=== PATIENT | male | born 1940 | race Caucasian/White ===

== ENCOUNTER 2016-06-17 10:10 | Inpatient (IN) | payer MEDICARE, OTHER ==
--- NOTE | ~2016-06-17 | DS ---
Discharge Summary [facility] [address] [facility] [place]. [address] NAME: RONALD AMIN : 38 STATUS : DIS IN PAT#: [id number] AGE: 76 ADM/REG DATE : 06/17/16 MR#: [id number] REPORT SERV DATE: 06/20/16 DICTATED BY: KEYANNA GAUTAM DATE: 06/19/16 REPORT STATUS : Draft TRANSCRIBED BY: MODL DATE: 06/19/16 ADMISSION DATE: 06/17/2016 DISCHARGE DATE: 06/19/2016 DISCHARGE DIAGNOSES: 1. Acute on chronic diastolic dysfunction, improved. 2. Chronic kidney disease, stable. 3. History of cardiac transplant. 4. History of former smoker. CONSULTANTS: 1. Dr. Allen. 2. Dr. Pandya. HISTORY OF PRESENT ILLNESS: This is a 76-year-old male patient, who has history of cardiac transplant and chronic kidney disease, came to the hospital with dyspnea on exertion for several months. Please see dictated H and P. HOSPITAL COURSE: He was admitted to hospital with diastolic dysfunction. He had evaluation with echocardiogram. Seen by Dr. Zavaleta the first day and Dr. Pandya. Diuretics have been managed by Dr. Pandya mainly. Improved and significant improvement with the treatment. Stabilized, and the patient does not require home oxygen. The patient is able to ambulate without any problem. The change of medications we made for Lasix 80 mg on Saturday, Saturday, Fridays only and continuing Lasix 40 mg the other days. I explained the patient about the medicine change and followup plan. Had a significant improvement and maximized inpatient benefit. The patient will be discharged to home with followup. DISCHARGE MEDICATIONS: Continue home medications, but Lasix was changed to 80 mg on Saturday, Saturday, Saturday. Continue 40 mg the other days. Other home medications are not changed including cyclosporine, diltiazem, prednisone 10 mg every two days, potassium 20 mEq once a day, and potassium carbonate. DISPOSITION: The patient is discharged to home in stable condition. Need to follow up with [facility], and [facility]. TIME SPENT: More than 30 minutes. EKL/MODL Keyanna Gonzalez Discharge Summary [place] [address] [address] NAME: RONALD AMIN : 38 STATUS : DIS IN PAT#: [id number] AGE: 76 ADM/REG DATE : 06/17/16 MR#: [id number] REPORT SERV DATE: 06/20/16 DICTATED BY: KEYANNA GAUTAM DATE: 06/19/16 REPORT STATUS : Draft TRANSCRIBED BY: MODL DATE: 06/19/16 Pako Gautam / [id number] CC: Keyanna Gautam M.D.
--- NOTE | ~2016-06-17 | CN ---
Consultation Report [facility] [address] [place]. [address] NAME: RONALD AMIN : 38 STATUS : ADM IN PAT#: [id number] AGE: 76 ADM/REG DATE : 06/17/16 MR#: [id number] REPORT SERV DATE: 06/18/16 DICTATED BY: JALEN PANDYA DATE: 06/18/16 REPORT STATUS : Draft TRANSCRIBED BY: DAVID DATE: 06/18/16 DATE OF CONSULTATION: REASON FOR CONSULTATION: Chronic kidney disease with admission for dyspnea on exertion. HISTORY OF PRESENT ILLNESS: This is a very pleasant 76-year-old male patient, followed in our office by Dr. Gold Carrillo, and his baseline creatinine is unknown to me at this time, however, the patient states baseline creatinine is somewhere in the 2s by his recollection. He does not recall his most recent available creatinine. In 2010, creatinine baseline appears to be 1.85 to 1.99; in 2012, at 2.07; in 2014, at 1.91; in 2015, at 2.23 to 2.49 with a creatinine today at 2.60 with his admission creatinine on at 2.46. Baseline creatinine is likely somewhere between 2.2 and 2.5. The patient reported to [facility] with a complaint of increasing dyspnea on exertion and nocturnal dyspnea prompting admission for assistance in diuresis and further evaluation and supportive care. He does not report chronic maintenance on home oxygen, although he is maintained currently on 2 L via nasal cannula. His p.o. Lasix regimen has been changed to 50 of torsemide with a daily dosing of metolazone at 4 mg by Cardiology. He is awake, alert, and ambulatory this morning. Denies overt shortness of breath. No chest pain, nausea, or vomiting. PAST MEDICAL HISTORY: Positive for chronic kidney disease, baseline creatinine unknown but appears to be likely 2.2 to 2.5. History is also positive for previous heart transplantation at [facility] in 1995. Remainder of his history is positive for previous coronary artery disease, previous CABG, myocardial infarction, history of aortic aneurysm repair in 2004 with stents, history of hypertension and dyslipidemia. SOCIAL HISTORY: Remote smoker with smoking cessation in 1980. He was an aggressive smoker prior to that with three packs per day. No EtOH, no illicit drugs, no tobacco at this point. He is and has a daughter and a brother who live here locally. FAMILY HISTORY: Noncontributory and not reviewed during this consultation and dictation. REVIEW OF SYSTEMS: Completed. Please see HPI for pertinent details. MEDICATIONS: Current active medications include ASA 325 mg daily, calcium carbonate 600 mg p.o. daily, cyclosporine 50 mg daily and 25 mg at bedtime, diltiazem 240 mg daily, famotidine 20 mg p.o. at bedtime, heparin 5000 units subcu q.8, multivitamin one tab, nitroglycerin 0.5 mg p.o. q.6 hours p.r.n. for chest pain, Promega one caplet p.o. b.i.d., prednisone 10 mg p.o. daily, simvastatin 40 mg daily, torsemide 50 mg daily. He also has antiemetic, antipain, antinausea, and electrolyte protocol unavailable on his active medications. ALLERGIES: HE LISTS ALLERGIES TO PROCAINAMIDE ON HIS ALLERGY LIST. Consultation Report [address] [place]. [address] NAME: RONALD AMIN : 38 STATUS : ADM [facility]#: [id number] AGE: 76 ADM/REG DATE : 06/17/16 MR#: [id number] REPORT SERV DATE: 06/18/16 DICTATED BY: JALEN PANDYA DATE: 06/18/16 REPORT STATUS : Draft TRANSCRIBED BY: DAVID DATE: 06/18/16 PHYSICAL EXAMINATION: VITAL SIGNS: Blood pressure at 103/65, temperature 97.6, heart rate 101 beats per minute, he is 99% on 2 L nasal cannula. GENERAL: He is awake, alert, and oriented x3, and ambulatory in his room. Denies current chest pain. No nausea, vomiting, or diarrhea. HEENT: Normocephalic and atraumatic. Normal ocular movements. No scleral icterus. No conjunctival pallor is appreciated. NECK: Supple without thyromegaly. No JVD or mass. CHEST: Shows positive S1 and S2. No rubs or gallops. LUNGS: Diminished, but essentially clear to auscultation throughout with no rhonchi or wheezes appreciated. GI: Shows positive bowel sounds and a rounded abdomen with no appreciable mass and no tenderness. Positive bowel sounds in all four quadrants. : Deferred. EXTREMITIES: Show positive pulses. No clubbing, cyanosis, or edema. NEUROLOGIC: Appears to be grossly intact. Nonfocal. SKIN: Warm, dry, and intact to visualized surfaces. No rash, lesions, or ecchymosis. PSYCHIATRIC: He appears to be of appropriate mood and affect and he is neurologically intact. LABORATORY DATA: Pertinent laboratories and imaging to this evaluation: Hemoglobin A1c of 5.8. Electrolyte profile: Sodium 143, potassium 4.3, chloride 109, CO2 of 21, BUN 36, creatinine 2.60. Reflected GFR at 23 mL/minute, calcium 8.2, magnesium 2.2, phosphorus 3.3, troponin 0.04. CBC shows a white blood cell count of 6.7, RBC 4.17, hemoglobin 12.6, hematocrit 37.4, platelets 137. Most recent B-natriuretic peptide 1017.3. Portable chest x ray taken on 06/17/2016 shows clear lungs with no evidence of pleural fluid. IMPRESSION AND PLAN: This is a chronic kidney disease stage 3 to stage [address] Gold Carrillo with baseline creatinine appeared to be around 2.2 to 2.6 over the last calendar year. Admitted with volume overload and shortness of breath now with modification of his treatment plan to include torsemide and metolazone dosing respectively as dose is indicated in HPI. The patient's breathing status has improved very much so since admission by his assessment this morning. However, given his chronic renal dysfunction and modification of diuretic burden, will need to titrate 50 of torsemide and dosing of metolazone in an effort to maintain a reasonable renal function as well as cardiac function and ease work of breathing. We will continue fluid restrictions as in place, ask nursing services to assess his need for home O2 and await his echocardiogram. The patient is anxious to exit to home today and has discussed this at length with his primary provider this morning, Dr. Raphael. Await cardiac recommendations. Will watch I's and O's and may need to modify diuretic pattern as above. Contact our office for recent evaluations and trends of laboratories, home O2 evaluation as listed, fluid restrict, sodium restrict, and modify treatment plan based on clinical presentation of the patient, laboratory results, and further consultation with renal attending. Of note, per the patient's discussion, he prefers that any medical decisions made by providers here are also discussed with [facility] or the facility responsible for his cardiac transplant. It is unlikely that he will follow medical Consultation Report [place] [id number] [facility] [place] [address] NAME: RONALD AMIN : 38 STATUS : ADM IN PAT#: [id number] AGE: 76 ADM/REG DATE : 06/17/16 MR#: [id number] REPORT SERV DATE: 06/18/16 DICTATED BY: JALEN PANDYA. DATE: 06/18/16 REPORT STATUS : Draft TRANSCRIBED BY: MODL DATE: 06/18/16 recommendations made here unless he feels that [facility] services are in agreement with current plans. We appreciate consultation on this patient. We are glad to follow him with you. DICTATED BY: Soham Castro NP JR/DAVID Jalen Pandya M.D. / [id number] CC: Heidi Raphael M.D. NO PCP
--- NOTE | ~2016-06-17 | HP ---
History And Physical [facility] [address] [place]. [address] NAME: RONALD AMIN : 38 STATUS : ADM IN [facility]#: [id number] AGE: 76 ADM/REG DATE : 06/17/16 MR#: [id number] REPORT SERV DATE: 06/17/16 DICTATED BY: RAO HARMAN DATE: 06/17/16 REPORT STATUS : Draft TRANSCRIBED BY: MODZhanna DATE: 06/17/16 DATE OF ADMISSION: 06/17/2016 HISTORY OF PRESENT ILLNESS: The patient is a pleasant 76-year-old male, who presented to [facility] accompanied by his daughter with a complaint of dyspnea for last three days. He said he always has dyspnea on exertion. At least for the last six or eight months, he has dyspnea on exertion and chronic lower extremity swelling, but for the last three to four days, it was worsening. He was complaining of cough with mostly clear phlegm. No fever. He did not have any significant chest pain. He said only sometimes on inspiration. He had mild pain in the left lower quadrant, which was sharp in character, was looking like rib achiness, but it has resolved now and does not hurt at all. The patient denies any fever, no rash, no headaches, no abdominal pain, no constipation, no diarrhea. He is febrile, and he was short of breath and unable to sleep. He was unable to lay flat, and he needed some pillows to put under his head. All 14-point review of systems done and negative except what is stated in the history of present illness. PAST MEDICAL HISTORY: Known for history of heart transplantation at an [facility] in in 1995. He sees [facility], Dr. Slick Gutiérrez and also Dr. Caitlyn Chau. Here in [place], he sees Dr. Allen, and he saw him six months ago. He said that his lower extremities has been always swollen. He also has abnormal kidney function. He said they told me it is borderline. According to our findings in the computer, his creatinine on 05/13/2015 was 2.49 and today 2.46, so one year ago was in the same range. He sees Dr. Gold Carrillo for his abnormal kidney function. The patient reported that before heart transplantation, he had coronary artery bypass grafting and he had heart attacks before. The patient denies history of any arrhythmia in the past. He also had history of aortic aneurysm repair in 2004 with some stents history of hypertension and dyslipidemia, includes also his past medical history. No other surgical history. ALLERGIES: CODEINE, SULFA, AND PROCAINAMIDE. SOCIAL HISTORY: Former smoker, quit in 1980. He used to smoke three packs per day. No alcohol. No recreational drug use. He is . He has one daughter who is at the bedside. He also has a brother. FAMILY HISTORY: Mother of old age. Father of a blood clot. REVIEW OF SYSTEMS: 14-point review of systems done and negative except what stated in history of present illness. HOME MEDICATIONS: Calcium carbonate 600 mg daily, Gengraf 50 mg in the morning and 25 in the evening, diltiazem 240 mg a day, omega-3 fatty acids 1200 p.o. b.i.d., potassium chloride 20 mEq p.o. daily, prednisone 10 mg p.o. q.48 hours, Zantac 150 mg p.o. b.i.d., simvastatin 40 mg daily, vitamin C, E, multivitamin PreserVision one capsule p.o. twice a day, furosemide History And Physical [address] [address] NAME: RONALD AMIN : 38 STATUS : ADM IN [facility]#: [id number] AGE: 76 ADM/REG DATE : 06/17/16 MR#: [id number] REPORT SERV DATE: 06/17/16 DICTATED BY: RAO HARMAN DATE: 06/17/16 REPORT STATUS : Draft TRANSCRIBED BY: MODZhanna DATE: 06/17/16 40 mg daily. PHYSICAL EXAMINATION: GENERAL: A well-nourished, well-developed male, not in acute distress. Resting quietly. VITAL SIGNS: Blood pressure 156/86, temperature 97.5, heart rate 101 to 103, respiratory rate 15, oxygen saturation 97% on 2 L nasal cannula. HEENT: Head atraumatic, normocephalic. Conjunctivae clear. Pupils are equal and reactive to light and accommodation. Extraocular muscles are intact. NECK: Supple. Trachea is midline. No supraclavicular or cervical lymphadenopathy. LUNGS: Diminished breath sounds bilaterally. Decreased respiratory effort. CARDIOVASCULAR: Regular rate and rhythm. Mild sinus tachycardia with low-voltage QRS. Ventricular rate 103. Point of maximal impulse not displaced. ABDOMEN: Soft, nontender, nondistended. No organomegaly. EXTREMITIES: No cyanosis, 2+ edema. There are changes of chronic venous stasis ulcers. PSYCHIATRIC: Normal mood and affect. NEUROLOGIC: Awake, alert, and oriented in time, place, and person. Muscle strength is 5/5 bilaterally on upper and lower extremities. LABORATORY RESULTS: Sodium 141, potassium 4, chloride 108, carbon dioxide 24, BUN 31, creatinine 2.46, blood sugar 106. Troponin 0.05. ALT 21, AST 16, total bilirubin 0.5. White count 9.3, hemoglobin 15, hematocrit 43.9, and a platelet count 136. PT 14.6, INR 1.2. BNP 1017. Chest x-ray, sternotomy. No acute cardiopulmonary process. ASSESSMENT AND PLAN: This is a very pleasant 76-year-old male with a history of heart transplantation in 1995; history of chronic kidney disease; history of coronary artery disease in the past; history of abdominal aortic aneurysm, status post stents presented with, 1. Acute congestive heart failure exacerbation with dyspnea and dyspnea at rest and swollen lower extremity. 2. Chronic kidney disease versus acute kidney injury, most likely chronic kidney disease. 3. Mild sinus tachycardia. We will admit the patient to telemetry bed to a cardiac floor. The patient was already given intravenous Lasix in the emergency room, and his shortness of breath immediately improved after he was given Lasix intravenously. Because of his abnormal kidney function, his creatinine is 2.46 today and one year ago on 05/13/2015 was 2.49, so most likely this is his baseline, but we will consult insurance sales manager for diuretic management. Borderline troponin likely this is demand ischemia since the patient does not have any chest pain right now, although earlier he had some sharp chest discomfort on the left side of the chest, which was atypical; currently, he does not have it, so we will check two more troponins serially to see if it will be increasing, as well as we will put him on nitroglycerin as needed for chest pain. I will also consult director oracle database communication lecturer to see this patient today. We will give him also aspirin. History And Physical [place] [address] [address] [place] [address] NAME: RONALD AMIN : 38 STATUS : ADM IN PAT#: [id number] AGE: 76 ADM/REG DATE : 06/17/16 MR#: [id number] REPORT SERV DATE: 06/17/16 DICTATED BY: RAO HARMAN DATE: 06/17/16 REPORT STATUS : Draft TRANSCRIBED BY: MODL DATE: 06/17/16 We will order echocardiogram on this patient as well to evaluate his ejection fraction. We will follow up on this patient tomorrow. /DAVID Rao Harman M.D. / [id number] CC: Soham Allen MD
--- NOTE | ~2016-06-17 | CN ---
Consultation Report [facility] [address] [place]. [address] NAME: RONALD AMIN : 38 STATUS : ADM IN [facility]#: [id number] AGE: 76 ADM/REG DATE : 06/17/16 MR#: [id number] REPORT SERV DATE: 06/17/16 DICTATED BY: RYLAN ZAVALETA DATE: 06/17/16 REPORT STATUS : Draft TRANSCRIBED BY: MODL DATE: 06/17/16 CARDIOLOGY CONSULTATION DATE OF CONSULTATION: INDICATION: Systolic heart failure, acute on chronic. HISTORY: The patient is a 76-year-old white male, who underwent orthotopic heart transplant in 1995. He has allograft vasculopathy. He has mild LV dysfunction. He is often limited by dyspnea after one to two blocks. He has chronic lower extremity edema. The patient has been fortunate, he has had no rejection history. He does have moderate renal insufficiency. Over the past several days, he has had worsening orthopnea. He presents for further evaluation and therapy. CURRENT HOME MEDICATIONS: Calcium carbonate 600 per day, cyclosporine 50 q.a.m. and 25 q.p.m., diltiazem ER 240 a day, furosemide 40 a day, omega-3 fatty acids 1200 b.i.d., potassium 20 a day, Deltasone 10 q.48 hours, Zantac 150 b.i.d., Simvastatin 40 a day, and a PreserVision soft gel. ALLERGIES OR INTOLERANCES: Procainamide (confusion). SOCIAL HISTORY: Former smoker, quit in 1980, previously smoked three packs per day. Negative for other drug use. He is and he has one daughter at the bed who attends to his care. FAMILY HISTORY: Mother of old age; father of a blood clot, not further defined. PAST MEDICAL HISTORY AND REVIEW OF SYSTEMS: The patient has chronic lower extremity edema. He has chronic kidney disease stage IIIB and sees Dr. Carrillo. He had an aortic aneurysm, endovascular stent 12/01/2007. His last ejection fraction 05/19/2015 was 45% to 50%. 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 There is a component of diastolic dysfunction. 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 PHYSICAL EXAMINATION: GENERAL: A 76-year-old white male. VITAL SIGNS: On arrival to the ER, blood pressure 156/86, pulse 103 and regular, respirations 15. Skin: No xanthelasmas. HEENT: He is normocephalic. There are no carotid bruits. JVD is at 8 cm. CHEST: There are no crackles. Consultation Report [place] [address] [place]. [address] NAME: RONALD AMIN : 38 STATUS : ADM IN [facility]#: [id number] AGE: 76 ADM/REG DATE : 06/17/16 MR#: [id number] REPORT SERV DATE: 06/17/16 DICTATED BY: RYLAN ZAVALETA DATE: 06/17/16 REPORT STATUS : Draft TRANSCRIBED BY: DAVID DATE: 06/17/16 CARDIAC: There is a right-sided as well as a left-sided S3. There is an S4. ABDOMEN: Soft. There is positive HJR. EXTREMITIES: With +2 to +1 edema (chronic). IMPRESSION: A 76-year-old white male with status post orthotopic heart transplant with underlying chronic kidney disease, hypertension, and vascular disease. 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 He will be admitted for further evaluation and therapy. JM/DAVID Rylan Zavaleta M.D. / [id number] CC: Heidi Raphael M.D. [facility]
[~2016-06-17 10:10] MED LIST: ASAB PO; CALTRA600D PO; FISH-EPA1000 MG PO; FOLIC PO; GENGRAF OR; GENGRAF PO; GENGRAF25 MG OR; GENGRAF25 MG PO; LOM PO; P10 PO; PRESERVISION; PRESERVISION PO; PRILOSEC40 MG PO; PRIN5 PO; STERAPRED5 MG; TAZTIA XT PO; TIAZA1 PO; ZANTAC 150 PO; ZANTAC150 MG PO; ZOCOR20 PO; ZOCOR40 PO; [UNRECOGNIZED DRUG - OTHER] OR; [UNRECOGNIZED DRUG - OTHER] PO
[2016-06-17 10:43] LABS: BASOPHILS 0.3 %; BASOPHILS ABSOLUTE 0.03 10/3/uL (0.0-0.16); EOSINOPHILS 3.4 %; EOSINOPHILS ABSOLUTE 0.32 10/3/uL (0.0-0.53); ER CBC TAT 0 Hrs 05 Mins; HEMATOCRIT 43.9 % (40.0-51.0); IMMATURE GRANULOCYTES 0.3 %; IMMATURE GRANULOCYTES ABSOLUTE 0.03 10/3/uL (0.0-0.11); LYMPHOCYTES 15.5 %; LYMPHOCYTES ABSOLUTE 1.45 10/3/uL (0.67-4.30); MANUAL DIFF NO %; MEAN CORPUS HGB CONC 34.2 g/dL (32.0-36.0); MEAN CORPUSCULAR HEMOGLOB 30.5 pg (26.0-34.0); MEAN CORPUSCULAR VOLUME 89.2 fL (80-100); MEAN PLATELET VOLUME 9.8 fL (9.2-13.0); MONOCYTES ABSOLUTE 1.03 10/3/uL (0.21-1.20); NEUTROPHILS 69.5 %; NEUTROPHILS ABSOLUTE 6.47 10/3/uL (2.02-8.40); PLATELET COUNT 136 10/3/uL (150-400); RBC DISTRIBUTION WIDTH 14.8 % (12.0-16.0); RED CELL COUNT 4.92 10/6/uL (4.7-6.1); WHITE BLOOD CELLS 9.3 10/3/uL (4.5-10.5)
[2016-06-17 10:48] LABS: INTERNATIONAL NORMAL RATI 1.2 UNITS (-); PROTIME (NOT ORD) 14.6 SEC (12.0-14.5)
[2016-06-17 11:00] LABS: A/G RATIO 0.7 (0.7-1.9); ALBUMIN 3.2 G/DL (3.5-5.0); BUN (BLOOD UREA NITROGEN) 31 MG/DL (6-23); CALCIUM, SERUM 8.7 MG/DL (8.5-10.4); CHLORIDE, SERUM 108 MMOL/L (96-112); CO2 (CARBON DIOXIDE) 24 MMOL/L (24-34); CREATININE 2.46 MG/DL (0.70-1.30); GFR AFRICAN AMERICAN 28 ML/MIN (>=60); GFR NON AFRICAN AMERICAN 24 ML/MIN (>=60); GLOBULIN 4.5 G/DL (2.5-4.1); GLUCOSE, SERUM 106 MG/DL (60-99); SGOT(AST) 16 U/L (5-40); SGPT(ALT) 21 U/L (5-65); SODIUM, SERUM 141 MMOL/L (135-148); TOTAL BILIRUBIN 0.5 MG/DL (0-1.2); TOTAL PROTEIN 7.7 G/DL (6.0-8.5)
[2016-06-17 11:01] LABS: ALKALINE PHOSPHATASE 149 U/L (45-117); TROPONIN I 0.05 NG/ML (<0.05)
[2016-06-17] MEDS ORDERED: CARDIZEM LA360 MG PO (11:43)
[2016-06-17] MEDS ORDERED: GENGRAF25 MG PO ×2 (11:43)
[2016-06-17] MEDS ORDERED: P10 PO (11:43)
[2016-06-17] MEDS ORDERED: ZANTAC150 MG PO (11:43)
[2016-06-17] MEDS ORDERED: L40 PO (11:44)
[2016-06-17] MEDS ORDERED: ZOCOR40 PO (11:44)
[2016-06-17] MEDS ORDERED: PRESERVISION A1 EAC1 PO (11:44)
[2016-06-17] MEDS ORDERED: FISH-EPA1000 MG PO (11:44)
[2016-06-17] MEDS ORDERED: CALTRA600D PO (11:44)
[2016-06-17] MEDS ORDERED: KLOR-CON M2020 MEQ PO (11:49)
[2016-06-17 18:21] LABS: TROPONIN I 0.06 NG/ML (<0.05); ULTRASENSITIVE TSH 1.19 MCIU/ML (0.358-3.740)
[2016-06-18 06:14] LABS: BASOPHILS 0.3 %; BASOPHILS ABSOLUTE 0.02 10/3/uL (0.0-0.16); EOSINOPHILS 0.2 %; EOSINOPHILS ABSOLUTE 0.01 10/3/uL (0.0-0.53); HEMOGLOBIN 12.6 g/dL (13.6-17.8); IMMATURE GRANULOCYTES 0.2 %; IMMATURE GRANULOCYTES ABSOLUTE 0.01 10/3/uL (0.0-0.11); LYMPHOCYTES 8.1 %; LYMPHOCYTES ABSOLUTE 0.54 10/3/uL (0.67-4.30); MEAN CORPUS HGB CONC 33.7 g/dL (32.0-36.0); MEAN CORPUSCULAR HEMOGLOB 30.2 pg (26.0-34.0); MEAN CORPUSCULAR VOLUME 89.7 fL (80-100); MONOCYTES 5.4 %; MONOCYTES ABSOLUTE 0.36 10/3/uL (0.21-1.20); NEUTROPHILS 85.8 %; NEUTROPHILS ABSOLUTE 5.71 10/3/uL (2.02-8.40); PLATELET COUNT 137 10/3/uL (150-400); RBC DISTRIBUTION WIDTH 15.1 % (12.0-16.0); RED CELL COUNT 4.17 10/6/uL (4.7-6.1); WHITE BLOOD CELLS 6.7 10/3/uL (4.5-10.5)
[2016-06-18 06:15] LABS: HEMATOCRIT 37.4 % (40.0-51.0); MANUAL DIFF NO %
[2016-06-18 06:32] LABS: CALCIUM, SERUM 8.2 MG/DL (8.5-10.4); CHLORIDE, SERUM 109 MMOL/L (96-112); CO2 (CARBON DIOXIDE) 21 MMOL/L (24-34); GFR AFRICAN AMERICAN 26 ML/MIN (>=60); GFR NON AFRICAN AMERICAN 23 ML/MIN (>=60); PHOSPHORUS, SERUM 3.3 MG/DL (2.5-4.5); POTASSIUM, SERUM 4.3 MMOL/L (3.5-5.3); SODIUM, SERUM 143 MMOL/L (135-148); TROPONIN I 0.04 NG/ML (<0.05)
[2016-06-18 06:36] LABS: BUN (BLOOD UREA NITROGEN) 36 MG/DL (6-23); GLUCOSE, SERUM 233 MG/DL (60-99)
[2016-06-19 04:43] LABS: BASOPHILS 0.4 %; BASOPHILS ABSOLUTE 0.03 10/3/uL (0.0-0.16); EOSINOPHILS 5.4 %; EOSINOPHILS ABSOLUTE 0.44 10/3/uL (0.0-0.53); HEMATOCRIT 39.5 % (40.0-51.0); HEMOGLOBIN 13.3 g/dL (13.6-17.8); IMMATURE GRANULOCYTES 0.5 %; IMMATURE GRANULOCYTES ABSOLUTE 0.04 10/3/uL (0.0-0.11); LYMPHOCYTES 16.9 %; LYMPHOCYTES ABSOLUTE 1.37 10/3/uL (0.67-4.30); MANUAL DIFF NO %; MEAN CORPUS HGB CONC 33.7 g/dL (32.0-36.0); MEAN CORPUSCULAR HEMOGLOB 30.2 pg (26.0-34.0); MEAN CORPUSCULAR VOLUME 89.8 fL (80-100); MEAN PLATELET VOLUME 10.2 fL (9.2-13.0); MONOCYTES 11.2 %; MONOCYTES ABSOLUTE 0.91 10/3/uL (0.21-1.20); NEUTROPHILS 65.6 %; NEUTROPHILS ABSOLUTE 5.34 10/3/uL (2.02-8.40); PLATELET COUNT 156 10/3/uL (150-400); RBC DISTRIBUTION WIDTH 14.9 % (12.0-16.0); WHITE BLOOD CELLS 8.1 10/3/uL (4.5-10.5)
[2016-06-19 04:51] LABS: CALCIUM, SERUM 8.7 MG/DL (8.5-10.4); CHLORIDE, SERUM 105 MMOL/L (96-112); GFR AFRICAN AMERICAN 26 ML/MIN (>=60); GFR NON AFRICAN AMERICAN 23 ML/MIN (>=60); PHOSPHORUS, SERUM 3.1 MG/DL (2.5-4.5); POTASSIUM, SERUM 4.1 MMOL/L (3.5-5.3); SODIUM, SERUM 141 MMOL/L (135-148)
[2016-06-19 04:55] LABS: BUN (BLOOD UREA NITROGEN) 41 MG/DL (6-23); CO2 (CARBON DIOXIDE) 27 MMOL/L (24-34); GLUCOSE, SERUM 129 MG/DL (60-99)
[2016-06-19] MEDS ORDERED: ASA5GR PO (12:49)
[2016-09-01] MEDS ORDERED: AMOXIL500C PO (14:46)
[2016-09-01] MEDS ORDERED: MCZ25 PO (14:52)
[2016-09-01] MEDS ORDERED: L80 PO (14:52)
[2016-09-03] MEDS ORDERED: L80 PO (11:09)
== END 2016-06-19 13:10 | disposition home or self-care (01) | DRG 291 ==
LOC: ER 10:10 → 5NO 13:37
PROVIDERS: Emergency Medicine; Hospitalist; Registered Nurse
DX: I13.0 Hypertensive heart and chronic kidney disease with heart failure and stage 1 through stage 4 chronic kidney disease, or unspecified chronic kidney disease (principal); I50.43 Acute on chronic combined systolic (congestive) and diastolic (congestive) heart failure; Z94.1 Heart transplant status; I24.8 Other forms of acute ischemic heart disease; N18.3 Chronic kidney disease, stage 3 (moderate); Z95.1 Presence of aortocoronary bypass graft; Z88.2 Allergy status to sulfonamides; Z87.891 Personal history of nicotine dependence
CPT/HCPCS: 71010; 71020; 76775; 80048; 80053; 80069; 83036; 83735; 83880; 84100; 84443; 84484; 85025; 85610; 94640; 96374; 99285; A9270-GY; C8929; J7515; Q9957